=== PATIENT | male | born 1975 | race Caucasian/White ===

== ENCOUNTER 2023-06-28 12:58 | Inpatient (IN) ==
--- NOTE | 2023-06-28 13:05 | DR.N/VMALE ---
HPI Time Seen Time Seen by Provider: 06/28/23 13:13 Complaints Chief Complaint Doctors Comments: 47 y/o male presents with vomiting over the past 2 days. Pt recently moved from [place], 1 1/2 weeks ago. Was d/c'd from his doctors (pain management, PCP) due to the move ). ran out of his meds. Has been on chronic pain management, oxycodone, for awhile. Last pain pill 3 days. Was taken off his DM meds, cause he was doing well (??). Having diffuse abdominal pain. Nothing makes it better, nothing makes it worse. No fever, URI symptoms. Has chronic foot ulceration under left great toe. + diaphoretic. Reviewed Nurses Notes Reviewed: Yes Source History Provided: Patient and Significant Other Mode of Arrival Mode of Arrival: Ambulatory PMH PMH Past Medical History: Coronary Artery Disease, Diabetes, Hypertension and Hyperthyroidism Past Surgical History: Yes Family History Family Medical History: Diabetes Mellitus, Cancer, Heart Failure and Hypertension Social History Alcohol Use: None Do you use any recreational Drugs:: No ROS Review of Systems Constitutional: Weakness Eyes: No Symptoms Reported ENTM: No Symptoms Reported Respiratoy: No Symptoms Reported Cardiovascular: No Symptoms Reported Gastrointestinal/Abdominal: See HPI Genitourinary: No Symptoms Reported Neurological: Weakness Musculoskeletal: No Symptoms Reported Integumentary: No Symptoms Reported All Other Systems: Reviewed and Negative PE Vital Signs Vitals: Vital Signs Temperature 97.8 F Pulse Rate 89 Pulse Rate 92 Pulse Rate 90 Pulse Rate 87 Pulse Rate 87 Pulse Rate 84 Pulse Rate 95 Pulse Rate 94 Pulse Rate 95 Pulse Rate 93 Pulse Rate 96 Pulse Rate 96 Pulse Rate 98 Pulse Rate 93 Pulse Rate 97 Pulse Rate 92 Pulse Rate 93 Pulse Rate 101 Respiratory Rate 20 Respiratory Rate 18 Respiratory Rate 18 Respiratory Rate 29 Respiratory Rate 21 Respiratory Rate 19 Respiratory Rate 16 Respiratory Rate 20 Respiratory Rate 15 Respiratory Rate 13 Respiratory Rate 15 Respiratory Rate 18 Respiratory Rate 19 Respiratory Rate 14 Respiratory Rate 18 Respiratory Rate 17 Respiratory Rate 20 Blood Pressure 186/88 Blood Pressure 173/103 Blood Pressure 173/103 Blood Pressure 173/103 Blood Pressure 201/119 Blood Pressure 191/126 Blood Pressure 191/126 Blood Pressure 202/121 Blood Pressure 202/121 Blood Pressure 202/121 Blood Pressure 204/117 Blood Pressure 204/117 Blood Pressure 181/108 Blood Pressure 207/106 Blood Pressure 207/106 Blood Pressure 201/119 Blood Pressure 201/119 Blood Pressure 201/119 Blood Pressure 201/119 Blood Pressure 201/119 Blood Pressure 201/119 Blood Pressure 201/119 Blood Pressure 201/119 Blood Pressure 201/119 Blood Pressure 201/119 Blood Pressure 208/102 Blood Pressure 229/128 Blood Pressure 229/128 Blood Pressure 238/138 Blood Pressure 238/138 O2 Sat by Pulse Oximetry 90 O2 Sat by Pulse Oximetry 95 O2 Sat by Pulse Oximetry 95 O2 Sat by Pulse Oximetry 97 O2 Sat by Pulse Oximetry 98 O2 Sat by Pulse Oximetry 96 O2 Sat by Pulse Oximetry 98 O2 Sat by Pulse Oximetry 100 O2 Sat by Pulse Oximetry 99 O2 Sat by Pulse Oximetry 98 O2 Sat by Pulse Oximetry 98 General General Appearance: Alert and Other (vomiting) Eyes Eye exam: PERRL and EOMI ENT ENT Exam: Mucous Membranes Moist Neck Neck Exam: Normal Inspection Respiratory Respiratory Exam: Normal Lung Sounds Bilat; negative Accessory Muscle Use or Respiratory Distress Cardiovascular Cardiovascular Exam: Regular Rate, Normal Rhythm and Normal Heart Sounds Abdominal Exam Abdominal Exam: Normal Bowel Sounds, Soft and Tenderness (all quads, no guarding or rebound. ) Extremities Extremities Exam: Normal Inspection; negative Edema Neurologic Neurological Exam: Alert, Oriented X3 and CN II-XII Intact; negative Motor Sensory Deficit Skin Skin Exam: Warm and Dry Other Exam Other Exam: L foot - + chronic ulceration of plantar surface of 1st MTP joint. COURSE Treatment Treatment: 47 y/o male with 2 days of vomiting. W/u initiated. Pt given IV fluids, IV zofran/protonix. Given IV dilaudid for pain, possible narcotic withdrawl. Labs overall acceptable, except for elevated glucose at 282. Pt given SQ reg insulin, 4 U. Was given IV hydralazine intiially. Not much help. Still vomiting. Given IV compazine/benadryl. BP still elevated, given IV metoprolol. CT abd/pelvis -no significant acute abnormalities. 1739 - BP still 200/112, recommend admission for further treatment of his BP, vomting. Dr Mccall accepted the admission. ROR Labs Reviewed Laboratory Results Reviewed?: Yes 06/28/23 13:09 06/28/23 13:57 Laboratory: WBC 11.7 X10^3/uL (3.6-10.0) H 06/28/23 13:09 RBC 5.14 X10^6/uL (4.7-6.0) 06/28/23 13:09 Hgb 14.1 g/dL (13.5-18.0) 06/28/23 13:09 Hct 42.1 % (42.0-54.0) 06/28/23 13:09 MCV 81.8 fL (80.0-100.0) 06/28/23 13:09 MCH 27.5 pg (27.0-34.0) 06/28/23 13:09 MCHC 33.6 g/dL (33.0-35.0) 06/28/23 13:09 RDW 15.6 % (11.6-16.5) 06/28/23 13:09 Plt Count 272 X10^3/uL (150.0-450.0) 06/28/23 13:09 MPV 8.1 fL (7.4-11.0) 06/28/23 13:09 Neut % (Auto) 75.4 % (42.0-75.0) H 06/28/23 13:09 Lymph % (Auto) 17.1 % (21.0-51.0) L 06/28/23 13:09 [place] % (Auto) 6.1 % (0.0-13.0) 06/28/23 13:09 Eos % (Auto) 0.6 % (0.9-2.9) L 06/28/23 13:09 Baso % (Auto) 0.8 % (0.2-1.0) 06/28/23 13:09 Neut # (Auto) 8.8 x10^3/uL (2.2-4.8) H 06/28/23 13:09 Lymph # (Auto) 2.0 X10^3/uL (1.3-2.9) 06/28/23 13:09 [place] # (Auto) 0.7 x10^3/uL (0.3-0.8) 06/28/23 13:09 Eos # (Auto) 0.1 x10^3/uL (0.0-0.2) 06/28/23 13:09 Baso # (Auto) 0.1 X10^3/uL (0.0-0.1) 06/28/23 13:09 Absolute Nucleated RBC 0.1 /100WBC 06/28/23 13:09 Sodium 138 mmol/L (136-145) 06/28/23 13:57 Corrected Sodium 142 mmol/L (136-145) 06/28/23 13:57 Potassium 3.5 mmol/L (3.5-5.1) 06/28/23 13:57 Chloride 101 mmol/L (98-107) 06/28/23 13:57 Carbon Dioxide 26.2 mmol/L (21-32) 06/28/23 13:57 BUN 12 mg/dL (7-18) 06/28/23 13:57 Creatinine 1.16 mg/dL (0.70-1.30) 06/28/23 13:57 Est GFR (MDRD) Af Amer > 60 (>60) 06/28/23 13:57 Est GFR (MDRD) Non-Af > 60 (>60) 06/28/23 13:57 Glucose 282 mg/dL (65-99) H 06/28/23 13:57 Calcium 8.3 mg/dL (8.5-10.1) L 06/28/23 13:57 Corrected Calcium TNP 06/28/23 13:57 Total Bilirubin 0.40 mg/dL (0.2-1.0) 06/28/23 13:57 AST 10 Units/L (15-37) L 06/28/23 13:57 ALT 16 Units/L (12-78) 06/28/23 13:57 Alkaline Phosphatase 72 Units/L (46-116) 06/28/23 13:57 Troponin I High Sens 22.3 ng/L (4.0-60.0) 06/28/23 13:57 Total Protein 7.7 g/dL (6.4-8.2) 06/28/23 13:57 Albumin 3.4 g/dL (3.4-5.0) 06/28/23 13:57 Globulin 4.3 g/dL (2.5-4.5) 06/28/23 13:57 Albumin/Globulin Ratio 0.8 Ratio (1.1-2.1) L 06/28/23 13:57 Lipase 55 Units/L (73-393) L 06/28/23 13:57 Specimen Type Clean catch urine 06/28/23 14:25 Urine Color Yellow (YELLOW) 06/28/23 14:25 Urine Appearance Slightly hazy (CLEAR) 06/28/23 14:25 Urine pH 6.0 (5.0 - 8.0) 06/28/23 14:25 Ur Specific [place] 1.020 (1.000-1.030) 06/28/23 14:25 Urine Protein 2+ (NEGATIVE) 06/28/23 14:25 Urine Glucose (UA) 4+ (NEGATIVE) 06/28/23 14:25 Urine Ketones 1+ (NEGATIVE) 06/28/23 14:25 Urine Blood 1+ (NEGATIVE) 06/28/23 14:25 Urine Nitrite Negative (NEGATIVE) 06/28/23 14:25 Urine Bilirubin Negative (NEGATIVE) 06/28/23 14:25 Urine Urobilinogen Normal (NORMAL) 06/28/23 14:25 Ur Leukocyte Esterase Negative (NEGATIVE) 06/28/23 14:25 Urine RBC 0-2 /HPF (0-3) 06/28/23 14:25 Urine WBC None seen /HPF (0-5) 06/28/23 14:25 Ur Squamous Epith Cells Rare /HPF (NEGATIVE) 06/28/23 14:25 Urine Bacteria Negative /HPF (NEGATIVE) 06/28/23 14:25 Hyaline Casts Rare /LPF (NEGATIVE) 06/28/23 14:25 Urine Mucus Few /HPF (NEGATIVE) 06/28/23 14:25 Ur Culture Indicated? No/not indicated 06/28/23 14:25 Urine Opiates Screen Negative (NEG=<300) 06/28/23 14:25 Urine Methadone Screen Negative (NEG=<300) 06/28/23 14:25 Ur Barbiturates Screen Negative (NEG=<200) 06/28/23 14:25 Ur Phencyclidine Scrn Negative (NEG=<25) 06/28/23 14:25 Ur Amphetamines Screen Negative (NEG=<1000) 06/28/23 14:25 U Benzodiazepines Scrn Negative (NEG=<200) 06/28/23 14:25 Urine Cocaine Screen Negative (NEG=<300) 06/28/23 14:25 U Marijuana (THC) Screen Positive (NEG=<50) A 06/28/23 14:25 Acetone, Semi-Quant Negative (NEGATIVE) 06/28/23 13:57 labs acceptable XRAY XRAY Interpreted by: Radiologist X-ray Results: EXAM: ABDCMEN/PELVIS WITH CON HISTORY: ABD PAIN COMPARISON: None. TECHNIQUE: Multiple axial images of the abdomen and pelvis were obtained from the lung bases to the pubic symphysis after the administration of IV contrast. Dose reduction techniques including Automated Exposure Control (AEC) and adjustment of mA and kV were utilized. FINDINGS: The lung bases are clear. The heart is borderline in size. Suspect hepatic steatosis. The gallbladder, spleen, pancreas, and right adrenal gland have a benign appearance. There is a small fat attenuation left adrenal lesion measuring 4 mm image 24 series 3. There is a small right upper pole renal cyst measuring 1.1 cm image 30 series series 3. No renal calculus or hydronephrosis. Severe bladder The prostate is normal in size. Moderate right and small left fat containing inguinal hernias. Submucosal fat deposition in the colon is nonspecific but often idiopathic. Negative for diverticulitis. The appendix is not visualized, but there is no significant inflammatory change in its expected location. Small bowel feces sign of the terminal ileum. There is a stent in the left external iliac and common femoral vein. Mildly atherosclerotic normal caliber abdominal aorta. Small fat containing umbilical hernia. There is atrophy of the right worse than left rectus abdominis musculature. No pathologic adenopathy. No free air, free fluid, collection. No acute osseous abnormality. Chronic anterior compression deformities at T10 through T12. Moderate lumbar spondylosis and bilateral hip osteoarthrosis. IMPRESSION: Suspect hepatic steatosis. 4 mm left adrenal myelolipoma. Moderate right and small left fat containing inguinal hernias. Small fat containing umbilical hernia. Small bowel feces sign of the terminal ileum is associated with delayed bowel transit. Negative for bowel obstruction. THIS IS AN ELECTRONICALLY VERIFIED FINAL REPORT 06/28/2023 3:35 PM - Electronically signed by Ramon Mendoza MD EKG Rate: 94 [place]: Normal Rhythm: NSR ST: Normal (+ old inferior [place]) Opioid Opioid Risk Tool Age (Madhav box if 16-45): No History of Preadolescent Sexual Abuse: No Total: 0 Total Score Risk Category: Low Risk Copyright: Alan LOREDO predicting aberrant behaviors Discharge Plan Diagnosis Discharge Problem: Hypertensive urgency, Vomiting Discharge Plan Patient Disposition: ADMITTED INPATIENT Condition: Stable
[2023-06-28 13:12] VITALS: BMI 40.1
[2023-06-28] MEDS ORDERED: ZOFRAN INJ 4 MG VIAL IVP ONE (13:13)
[2023-06-28] MEDS ORDERED: PROTONIX INJ 40 MG VIAL IVP ONE (13:13)
[2023-06-28] MEDS ORDERED: NS 1,000 ML IV 1,000 ML IV ONE (13:13)
--- NOTE | 2023-06-28 13:15 | EKG ---
Test Reason : hypertension Blood Pressure : */* mmHG Vent. Rate : 94 BPM Atrial Rate : 94 BPM P-R Int : 186 ms QRS Dur : 94 ms QT Int : 374 ms P-R-T Axes : 51 18 16 degrees QTc Int : 467 ms Normal sinus rhythm Inferior infarct , age undetermined Abnormal ECG No previous ECGs available Confirmed by Justen Dodd ([id number]) on 06/30/2023 9:58:56 AM Referred By: Confirmed By: Justen Dodd
[2023-06-28] MEDS ORDERED: PROTONIX INJ 40 MG VIAL ONE (13:17)
[2023-06-28] MEDS ORDERED: ZOFRAN INJ 4 MG VIAL ONE (13:17)
[2023-06-28] MEDS ORDERED: NS 1,000 ML IV 1,000 ML ONE (13:17)
[2023-06-28 13:24] LABS: BASOPHILS # (AUTO) 0.1 X10^3/uL (0.0-0.1); BASOPHILS % (AUTO) 0.8 % (0.2-1.0); EOSINOPHILS # (AUTO) 0.1 x10^3/uL (0.0-0.2); EOSINOPHILS % (AUTO) 0.6 % (0.9-2.9); HEMATOCRIT 42.1 % (42.0-54.0); HEMOGLOBIN 14.1 g/dL (13.5-18.0); LYMPHOCYTES % (AUTO) 17.1 % (21.0-51.0); MEAN CORPUSCULAR HEMOGLOBIN 27.5 pg (27.0-34.0); MEAN CORPUSCULAR HGB CONC 33.6 g/dL (33.0-35.0); MEAN CORPUSCULAR VOLUME 81.8 fL (80.0-100.0); MEAN PLATELET VOLUME 8.1 fL (7.4-11.0); MONOCYTES # (AUTO) 0.7 x10^3/uL (0.3-0.8); MONOCYTES % (AUTO) 6.1 % (0.0-13.0); NEUTROPHILS # (AUTO) 8.8 x10^3/uL (2.2-4.8); NEUTROPHILS % (AUTO) 75.4 % (42.0-75.0); PLATELET COUNT 272 X10^3/uL (150.0-450.0); RED BLOOD COUNT 5.14 X10^6/uL (4.7-6.0); RED CELL DISTRIBUTION WIDTH 15.6 % (11.6-16.5); WHITE BLOOD COUNT 11.7 X10^3/uL (3.6-10.0)
[2023-06-28] MEDS ORDERED: APRESOLINE INJ 20 MG VIAL IVP ONE (13:27)
[2023-06-28] MEDS ORDERED: DILAUDID INJ IVP ONE ×2 (13:27→18:05)
[2023-06-28] MEDS ORDERED: APRESOLINE INJ 20 MG VIAL ONE (13:31)
[2023-06-28] MEDS ORDERED: DILAUDID INJ ONE ×2 (13:31→18:07)
[2023-06-28 14:22] LABS: ALANINE AMINOTRANSFERASE 16 Units/L (12-78); ALBUMIN 3.4 g/dL (3.4-5.0); ALKALINE PHOSPHATASE 72 Units/L (46-116); ASPARTATE AMINO TRANSFERASE 10 Units/L (15-37); BLOOD UREA NITROGEN 12 mg/dL (7-18); CALCIUM 8.3 mg/dL (8.5-10.1); CARBON DIOXIDE 26.2 mmol/L (21-32); CHLORIDE 101 mmol/L (98-107); COR NA(FOR HYPERGLY) 142 mmol/L (136-145); CREATININE 1.16 mg/dL (0.70-1.30); GLUCOSE 282 mg/dL (65-99); LIPASE 55 Units/L (73-393); POTASSIUM 3.5 mmol/L (3.5-5.1); SODIUM 138 mmol/L (136-145); TOTAL PROTEIN 7.7 g/dL (6.4-8.2); eGFR NON BLACK RACES > 60 (>60)
[2023-06-28 14:35] LABS: BILIRUBIN,URINE NEGATIVE (NEGATIVE); BLOOD/HEMOGLOBIN,URINE 1+ (NEGATIVE); GLUCOSE, URINE 4+ (NEGATIVE); KETONES,URINE 1+ (NEGATIVE); LEUKOCYTE ESTERASE ,URINE NEGATIVE (NEGATIVE); NITRITES,URINE NEGATIVE (NEGATIVE); PROTEIN,URINE 2+ (NEGATIVE); UROBILINOGEN,URINE NORMAL (NORMAL)
[2023-06-28] MEDS ORDERED: BENADRYL INJ 50 MG VIAL IVP ONE (14:41)
[2023-06-28] MEDS ORDERED: COMPAZINE INJ IVP ONE (14:41)
[2023-06-28] MEDS ORDERED: NovoLIN R (or HumuLIN R) SUBCUT STA (14:41)
[2023-06-28] MEDS ORDERED: BENADRYL INJ 50 MG VIAL ONE (14:47)
[2023-06-28] MEDS ORDERED: COMPAZINE INJ ONE (14:47)
[2023-06-28] MEDS ORDERED: NovoLIN R (or HumuLIN R) ONE ×2 (14:48→14:54)
[2023-06-28 14:49] LABS: APPEARANCE,URINE SLIGHTLY HAZY (CLEAR); COLOR,URINE YELLOW (YELLOW)
[2023-06-28 14:50] LABS: BACTERIA,URINE NEGATIVE /HPF (NEGATIVE); HYALINE CASTS, URINE RARE /LPF (NEGATIVE); RBC,URINE 0-2 /HPF (0-3); SQUAMOUS EPITHELIAL CELL,UR RARE /HPF (NEGATIVE)
[2023-06-28] MEDS ORDERED: LOPRESSOR INJ 5 MG AMP IVP ONE (15:02)
[2023-06-28] MEDS ORDERED: LOPRESSOR INJ 5 MG AMP ONE (15:04)
[2023-06-28] MEDS ORDERED: OMNIPAQUE 350 mg/mL 100 mL BTL 100 ML ONE (15:09)
--- NOTE | 2023-06-28 15:39 | CT ---
EXAM:ABDCMEN/PELVIS WITH CONHISTORY:ABD PAINCOMPARISON:None.TECHNIQUE:Multiple axial images of the abdomen and pelvis were obtained from the lung bases to the pubic symphysis after the administration of IV contrast. Dose reduction techniques including Automated Exposure Control (AEC) and adjustment of mA and kV were utilized.FINDINGS:The lung bases are clear. The heart is borderline in size. Suspect hepatic steatosis. The gallbladder, spleen, pancreas, and right adrenal gland have a benign appearance. There is a small fat attenuation left adrenal lesion measuring 4 mm image 24 series 3. There is a small right upper pole renal cyst measuring 1.1 cm image 30 series series 3. No renal calculus or hydronephrosis. Severe bladder The prostate is normal in size. Moderate right and small left fat containing inguinal hernias. Submucosal fat deposition in the colon is nonspecific but often idiopathic. Negative for diverticulitis. The appendix is not visualized, but there is no significant inflammatory change in its expected location. Small bowel feces sign of the terminal ileum. There is a stent in the left external iliac and common femoral vein. Mildly atherosclerotic normal caliber abdominal aorta. Small fat containing umbilical hernia. There is atrophy of the right worse than left rectus abdominis musculature. No pathologic adenopathy. No free air, free fluid, collection. No acute osseous abnormality. Chronic anterior compression deformities at T10 through T12. Moderate lumbar spondylosis and bilateral hip osteoarthrosis.IMPRESSION:Suspect hepatic steatosis.4 mm left adrenal myelolipoma.Moderate right and small left fat containing inguinal hernias. Small fat containing umbilical hernia.Small bowel feces sign of the terminal ileum is associated with delayed bowel transit. Negative for bowel obstruction.THIS IS AN ELECTRONICALLY VERIFIED FINAL REPORT06/28/2023 3:35 PM - Electronically signed by Ramon Mendoza MD
[2023-06-28] MEDS ORDERED: CONSULT PHARMACY - POTASSIUM & MAGNESIUM XX SCH (19:01)
[2023-06-28] MEDS ORDERED: LOPRESSOR INJ 5 MG AMP IVP PRN (19:01)
[2023-06-28] MEDS: APRESOLINE INJ 20 MG VIAL IVP SCH (19:33)
[2023-06-28] MEDS: DILAUDID INJ IVP PRN (19:37)
[2023-06-28] MEDS: SNACK - Diabetic Appropriate PO SCH ×2 (20:11)
[2023-06-28] MEDS: NovoLIN R (or HumuLIN R) SUBCUT PRN (20:49)
[2023-06-29] MEDS: APRESOLINE INJ 20 MG VIAL IVP SCH ×2 (00:44→06:06)
[2023-06-29] MEDS: DILAUDID INJ IVP PRN ×2 (00:49→04:24)
[2023-06-29] MEDS: ZOFRAN INJ 4 MG VIAL IVP PRN ×3 (04:28→20:38)
[2023-06-29 05:13] LABS: BASOPHILS # (AUTO) 0.1 X10^3/uL (0.0-0.1); BASOPHILS % (AUTO) 0.9 % (0.2-1.0); EOSINOPHILS # (AUTO) 0.1 x10^3/uL (0.0-0.2); EOSINOPHILS % (AUTO) 0.6 % (0.9-2.9); HEMATOCRIT 39.5 % (42.0-54.0); HEMOGLOBIN 13.5 g/dL (13.5-18.0); LYMPHOCYTES # (AUTO) 2.3 X10^3/uL (1.3-2.9); LYMPHOCYTES % (AUTO) 20.1 % (21.0-51.0); MEAN CORPUSCULAR HEMOGLOBIN 27.8 pg (27.0-34.0); MEAN CORPUSCULAR HGB CONC 34.2 g/dL (33.0-35.0); MEAN CORPUSCULAR VOLUME 81.2 fL (80.0-100.0); MEAN PLATELET VOLUME 7.9 fL (7.4-11.0); MONOCYTES # (AUTO) 0.9 x10^3/uL (0.3-0.8); MONOCYTES % (AUTO) 7.7 % (0.0-13.0); NEUTROPHILS # (AUTO) 7.9 x10^3/uL (2.2-4.8); NEUTROPHILS % (AUTO) 70.7 % (42.0-75.0); PLATELET COUNT 259 X10^3/uL (150.0-450.0); RED BLOOD COUNT 4.86 X10^6/uL (4.7-6.0); RED CELL DISTRIBUTION WIDTH 15.9 % (11.6-16.5); WHITE BLOOD COUNT 11.2 X10^3/uL (3.6-10.0)
[2023-06-29 05:26] LABS: ALANINE AMINOTRANSFERASE 12 Units/L (12-78); ALKALINE PHOSPHATASE 63 Units/L (46-116); ASPARTATE AMINO TRANSFERASE 11 Units/L (15-37); BLOOD UREA NITROGEN 10 mg/dL (7-18); CALCIUM 8.1 mg/dL (8.5-10.1); CARBON DIOXIDE 24.6 mmol/L (21-32); CHLORIDE 101 mmol/L (98-107); COR CA(FOR HYPOALB) 8.9 mg/dL (8.5-10.1); COR NA(FOR HYPERGLY) 140 mmol/L (136-145); CREATININE 0.97 mg/dL (0.70-1.30); GLUCOSE 181 mg/dL (65-99); POTASSIUM 3.1 mmol/L (3.5-5.1); SODIUM 138 mmol/L (136-145); TOTAL PROTEIN 7.1 g/dL (6.4-8.2); eGFR NON BLACK RACES > 60 (>60)
[2023-06-29] MEDS ORDERED: CONSULT PHARMACY - POTASSIUM & MAGNESIUM XX SCH (06:00)
[2023-06-29] MEDS ORDERED: APRESOLINE INJ 20 MG VIAL IVP PRN (08:34)
[2023-06-29] MEDS ORDERED: MAG-OX TAB PO SCH (09:00)
[2023-06-29] MEDS ORDERED: ELIMITE TOPICAL CREAM TOP NR (09:00)
[2023-06-29] MEDS ORDERED: ZESTRIL TAB 20 MG ONE (10:36)
[2023-06-29] MEDS ORDERED: NS 100 ML IV 0 ML ONE (10:41)
[2023-06-29] MEDS: ZESTRIL TAB 20 MG PO SCH (10:44)
[2023-06-29] MEDS: NEURONTIN CAP 300 MG PO SCH ×3 (10:44→21:22)
[2023-06-29] MEDS: K-DUR TAB 20 MEQ PO SCH ×5 (10:44→21:22)
[2023-06-29] MEDS: FLEXERIL TAB 10 MG PO SCH ×3 (10:45→21:21)
[2023-06-29] MEDS: ASPIRIN 81 MG CHEWTAB PO SCH (10:45)
[2023-06-29] MEDS: NORVASC TAB 10 MG PO SCH (10:45)
[2023-06-29] MEDS ORDERED: NS 1,000 ML IV 1,000 ML ONE (11:39)
[2023-06-29] MEDS: ROXICODONE TAB 5 MG PO PRN ×2 (12:00→20:38)
[2023-06-29] MEDS ORDERED: MAG-OX TAB PO NR (12:00)
[2023-06-29] MEDS: LEVAQUIN PREMIX IV 750 MG 750 MG/150 ML BAG IV SCH (12:02)
[2023-06-29] MEDS ORDERED: NS 1,000 ML IV 1,000 ML IV SCH (12:09)
[2023-06-29] MEDS: LEVEMIR SC SCH (12:40)
[2023-06-29] MEDS: NovoLIN R (or HumuLIN R) SUBCUT PRN ×2 (12:44→21:27)
[2023-06-29] MEDS: NS + KCL 20 MEQ/L 1,000 ML IV SCH (13:56)
[2023-06-29] MEDS: SNACK - Diabetic Appropriate PO SCH ×3 (19:11)
[2023-06-29] MEDS: MAG-OX TAB PO SCH (21:21)
[2023-06-29] MEDS: RESTORIL CAP 15 MG PO PRN (23:46)
[2023-06-30] MEDS: ZOFRAN INJ 4 MG VIAL IVP PRN (04:35)
[2023-06-30] MEDS: ROXICODONE TAB 5 MG PO PRN ×3 (04:35→21:24)
[2023-06-30] MEDS: NEURONTIN CAP 300 MG PO SCH ×3 (05:29→21:22)
[2023-06-30] MEDS: FLEXERIL TAB 10 MG PO SCH ×3 (05:29→21:22)
[2023-06-30 05:41] LABS: BASOPHILS # (AUTO) 0.1 X10^3/uL (0.0-0.1); BASOPHILS % (AUTO) 0.8 % (0.2-1.0); EOSINOPHILS % (AUTO) 0.3 % (0.9-2.9); HEMATOCRIT 46.3 % (42.0-54.0); LYMPHOCYTES # (AUTO) 2.8 X10^3/uL (1.3-2.9); LYMPHOCYTES % (AUTO) 24.2 % (21.0-51.0); MEAN CORPUSCULAR HEMOGLOBIN 28.2 pg (27.0-34.0); MEAN CORPUSCULAR HGB CONC 34.3 g/dL (33.0-35.0); MEAN CORPUSCULAR VOLUME 82.1 fL (80.0-100.0); MEAN PLATELET VOLUME 7.8 fL (7.4-11.0); MONOCYTES # (AUTO) 1.1 x10^3/uL (0.3-0.8); MONOCYTES % (AUTO) 9.5 % (0.0-13.0); NEUTROPHILS # (AUTO) 7.5 x10^3/uL (2.2-4.8); NEUTROPHILS % (AUTO) 65.2 % (42.0-75.0); PLATELET COUNT 294 X10^3/uL (150.0-450.0); RED BLOOD COUNT 5.64 X10^6/uL (4.7-6.0); RED CELL DISTRIBUTION WIDTH 16.1 % (11.6-16.5); WHITE BLOOD COUNT 11.4 X10^3/uL (3.6-10.0)
[2023-06-30 05:44] LABS: HEMOGLOBIN 15.9 g/dL (13.5-18.0)
[2023-06-30] MEDS: NovoLIN R (or HumuLIN R) SUBCUT PRN ×3 (05:49→21:25)
[2023-06-30 05:55] LABS: ALANINE AMINOTRANSFERASE 16 Units/L (12-78); ALBUMIN 3.7 g/dL (3.4-5.0); ALKALINE PHOSPHATASE 76 Units/L (46-116); ASPARTATE AMINO TRANSFERASE 12 Units/L (15-37); BLOOD UREA NITROGEN 12 mg/dL (7-18); CALCIUM 8.9 mg/dL (8.5-10.1); CARBON DIOXIDE 24.6 mmol/L (21-32); CHLORIDE 98 mmol/L (98-107); COR NA(FOR HYPERGLY) 139 mmol/L (136-145); CREATININE 1.32 mg/dL (0.70-1.30); GLUCOSE 182 mg/dL (65-99); MAGNESIUM 2.1 mg/dL (2.0-2.9); POTASSIUM 3.9 mmol/L (3.5-5.1); SODIUM 137 mmol/L (136-145); TOTAL PROTEIN 8.7 g/dL (6.4-8.2); eGFR NON BLACK RACES > 60 (>60)
[2023-06-30] MEDS ORDERED: ZESTRIL TAB 20 MG ONE (08:14)
[2023-06-30] MEDS: MAG-OX TAB PO SCH ×2 (08:39→21:22)
[2023-06-30] MEDS: ZESTRIL TAB 20 MG PO SCH (08:39)
[2023-06-30] MEDS: NORVASC TAB 10 MG PO SCH (08:39)
[2023-06-30] MEDS: ASPIRIN 81 MG CHEWTAB PO SCH (08:39)
[2023-06-30] MEDS: LEVAQUIN PREMIX IV 750 MG 750 MG/150 ML BAG IV SCH (08:40)
[2023-06-30] MEDS: LEVEMIR SC SCH (08:57)
[2023-06-30] MEDS ORDERED: ZOFRAN TAB 4 MG PO PRN (09:03)
[2023-06-30] MEDS: NS + KCL 20 MEQ/L 1,000 ML IV SCH (09:52)
--- NOTE | 2023-06-30 14:55 | PCM.PROG ---
Progress Note - Progress Note for Day of Date of Exam: 06/30/23 - Subjective Subjective: IS A 47 YEAR OLD PATIENT OF . HE HAS A PMH OF DM II, HTN, CAD, DC, DIABETIC NEUROPATHY, AND CHRONIC ULCER OF THE GREAT LEFT TOE. HE IS CURRENTLY INPATIENT STATUS FOR TREATMENT OF HYPERTENSIVE URGENCY, ABDOMINAL PAIN, NAUSEA AND VOMITING. TODAY, HE IS ALERT AND ORIENTED, LYING IN BED ON MORNING ROUNDS. HE CONTINUES TO COMPLAIN OF DIFFUSE ABDOMINAL PAIN. HE DOES ADMIT TO SLIGHT IMPROVEMENT IN SYMPTOMS SINCE ADMISSION. HE COMPLAINS OF ITCHING TO HIS BACK AND STOMACH. HIS BLOOD PRESSURE SEEMS TO HAVE BEEN STABLE AND CONTROLLED THROUGHOUT THE NIGHT. ON EXAMINATION, HEART IS REGULAR IN RATE AND RHYTHM. BILATERAL LUNGS ARE CLEAR TO AUSCULTATION. ABDOMEN IS ROUND, SOFT, A ND NOTED WITH DIFFUSE TENDERNESS. GOOD RANGE OF MOTION NOTED TO UPPER AND LOWER EXTREMITIES. NON-HEALING WOUND COVERED WITH KERATOSIS IS NOTED TO THE LEFT GREAT TOE. HIS VITALS THIS MORNING ARE: 97.8-85-20-96%-119/73. LABS WERE OBTAINED. WBC 11.4, RBC 5.64, HGB 15.9, HCT 46.3, PLT COUNT 294, SODIUM 137, POTASSIUM 3.9, CHLORIDE 98, CARBON DIOXIDE 24.6, BUN 12, CREATININE 1.32, GLUCOSE 182, CALCIUM 8.9, MAGNESIUM 2.1, AST 12, ALT 16, ALK PHOS 76, TOTAL PROTEIN 8.7, ALBUMIN 3.7. AN ABDOMEN/PELVIS CT WITH CONTRAST WAS OBTAINED AND REVEALED: Suspect hepatic steatosis. 4 mm left adrenal myelolipoma. Moderate right and small left fat containing inguinal hernias. Small fat containing umbilical hernia. Small bowel feces sign of the terminal ileum is associated with delayed bowel transit. Negative for bowel obstruction. HAS CONSULTED WITH PATIENT REGARDING WOUND TO GREAT TOE. HE PLANS FOR DEBRIDEMENT NEXT WEEK. WE WILL CONTINUE PATIENTS IV FLUIDS AND CURRENT PLAN OF CARE TODAY. OTHERWISE, WE WILL FOLLOW UP WITH AM LABS AND CONTINUE TO MONITOR. TIME SPENT ON CLINICAL ASSESSMENT, R EVIEWING LABS AND IMAGING, DECISION MAKING, AND DOCUMENTATION GREATER THAN 45 MINUTES. - Past Medical Family Social History Past Med/Fam/Surg Hx: No changes since H&P Allergies: Allergies dicyclomine Allergy (Verified 06/28/23 13:12) RASH doxycycline Allergy (Verified 06/28/23 13:12) metformin Allergy (Verified 06/28/23 13:12) Penicillins Allergy (Verified 06/28/23 13:12) Latex, Natural Rubber Adverse Reaction (Verified 06/29/23 00:30) - Review of Systems ROS: No change since H&P - Vital Signs and I&O's Vital Signs: Vital Signs Temperature 97.6 F Temperature 97.8 F Pulse Rate [Left Radial] 74 Pulse Rate [Left Radial] 85 Respiratory Rate 20 Respiratory Rate 18 Respiratory Rate 18 Respiratory Rate 20 Blood Pressure [Left Arm] 91/50 Blood Pressure [Left Arm] 119/73 O2 Sat by Pulse Oximetry 91 O2 Sat by Pulse Oximetry 96 Intake and Output: Intake & Output 06/28/23 06/29/23 06/30/23 07/01/23 11:59 11:59 11:59 11:59 Intake Total 1186 / 1186 2741 / 2741 Output Total 220 / 220 1100 / 1100 Balance 966 / 966 1641 / 1641 - Physical Exam Oriented: Normal Eyes: Normal Ear: Normal Nose: Normal Throat: Normal Respiratory: Normal, Diminished Cardiovascular: Normal : Normal Auscultation: Bowel Sounds: Normal Palpation: Normal Tenderness: Normal Skin: Wound (LEFT GREAT TOE WOUND ) Musculoskeletal: Normal Psychiatric: Normal Mood Description: Calm Affect: Normal Speech Pattern: Clear, Appropriate - Laboratory and Diagnostics Result Diagrams: 06/30/23 04:36 06/30/23 04:36 Labs: Laboratory WBC 11.4 X10^3/uL (3.6-10.0) H 06/30/23 04:36 RBC 5.64 X10^6/uL (4.7-6.0) 06/30/23 04:36 Hgb 15.9 g/dL (13.5-18.0) D 06/30/23 04:36 Hct 46.3 % (42.0-54.0) 06/30/23 04:36 MCV 82.1 fL (80.0-100.0) 06/30/23 04:36 MCH 28.2 pg (27.0-34.0) 06/30/23 04:36 MCHC 34.3 g/dL (33.0-35.0) 06/30/23 04:36 RDW 16.1 % (11.6-16.5) 06/30/23 04:36 Plt Count 294 X10^3/uL (150.0-450.0) 06/30/23 04:36 MPV 7.8 fL (7.4-11.0) 06/30/23 04:36 Neut % (Auto) 65.2 % (42.0-75.0) 06/30/23 04:36 Lymph % (Auto) 24.2 % (21.0-51.0) 06/30/23 04:36 [place] % (Auto) 9.5 % (0.0-13.0) 06/30/23 04:36 Eos % (Auto) 0.3 % (0.9-2.9) L 06/30/23 04:36 Baso % (Auto) 0.8 % (0.2-1.0) 06/30/23 04:36 Neut # (Auto) 7.5 x10^3/uL (2.2-4.8) H 06/30/23 04:36 Lymph # (Auto) 2.8 X10^3/uL (1.3-2.9) 06/30/23 04:36 [place] # (Auto) 1.1 x10^3/uL (0.3-0.8) H 06/30/23 04:36 Eos # (Auto) 0.0 x10^3/uL (0.0-0.2) 06/30/23 04:36 Baso # (Auto) 0.1 X10^3/uL (0.0-0.1) 06/30/23 04:36 Absolute Nucleated RBC 0.1 /100WBC 06/30/23 04:36 Sodium 137 mmol/L (136-145) 06/30/23 04:36 Corrected Sodium 139 mmol/L (136-145) 06/30/23 04:36 Potassium 3.9 mmol/L (3.5-5.1) 06/30/23 04:36 Chloride 98 mmol/L (98-107) 06/30/23 04:36 Carbon Dioxide 24.6 mmol/L (21-32) 06/30/23 04:36 BUN 12 mg/dL (7-18) 06/30/23 04:36 Creatinine 1.32 mg/dL (0.70-1.30) H 06/30/23 04:36 Est GFR (MDRD) Af Amer > 60 (>60) 06/30/23 04:36 Est GFR (MDRD) Non-Af > 60 (>60) 06/30/23 04:36 Glucose 182 mg/dL (65-99) H 06/30/23 04:36 POC Glucose (mg/dL) 181 mg/dL (65-99) H 06/30/23 11:14 Calcium 8.9 mg/dL (8.5-10.1) 06/30/23 04:36 Corrected Calcium TNP 06/30/23 04:36 Magnesium 2.1 mg/dL (2.0-2.9) 06/30/23 04:36 Total Bilirubin 0.80 mg/dL (0.2-1.0) 06/30/23 04:36 AST 12 Units/L (15-37) L 06/30/23 04:36 ALT 16 Units/L (12-78) 06/30/23 04:36 Alkaline Phosphatase 76 Units/L (46-116) 06/30/23 04:36 Troponin I High Sens 22.3 ng/L (4.0-60.0) 06/28/23 13:57 Total Protein 8.7 g/dL (6.4-8.2) H 06/30/23 04:36 Albumin 3.7 g/dL (3.4-5.0) 06/30/23 04:36 Globulin 5.0 g/dL (2.5-4.5) H 06/30/23 04:36 Albumin/Globulin Ratio 0.7 Ratio (1.1-2.1) L 06/30/23 04:36 Lipase 55 Units/L (73-393) L 06/28/23 13:57 Specimen Type Clean catch urine 06/28/23 14:25 Urine Color Yellow (YELLOW) 06/28/23 14:25 Urine Appearance Slightly hazy (CLEAR) 06/28/23 14:25 Urine pH 6.0 (5.0 - 8.0) 06/28/23 14:25 Ur Specific [place] 1.020 (1.000-1.030) 06/28/23 14:25 Urine Protein 2+ (NEGATIVE) 06/28/23 14:25 Urine Glucose (UA) 4+ (NEGATIVE) 06/28/23 14:25 Urine Ketones 1+ (NEGATIVE) 06/28/23 14:25 Urine Blood 1+ (NEGATIVE) 06/28/23 14:25 Urine Nitrite Negative (NEGATIVE) 06/28/23 14:25 Urine Bilirubin Negative (NEGATIVE) 06/28/23 14:25 Urine Urobilinogen Normal (NORMAL) 06/28/23 14:25 Ur Leukocyte Esterase Negative (NEGATIVE) 06/28/23 14:25 Urine RBC 0-2 /HPF (0-3) 06/28/23 14:25 Urine WBC None seen /HPF (0-5) 06/28/23 14:25 Ur Squamous Epith Cells Rare /HPF (NEGATIVE) 06/28/23 14:25 Urine Bacteria Negative /HPF (NEGATIVE) 06/28/23 14:25 Hyaline Casts Rare /LPF (NEGATIVE) 06/28/23 14:25 Urine Mucus Few /HPF (NEGATIVE) 06/28/23 14:25 Ur Culture Indicated? No/not indicated 06/28/23 14:25 Urine Opiates Screen Negative (NEG=<300) 06/28/23 14:25 Urine Methadone Screen Negative (NEG=<300) 06/28/23 14:25 Ur Barbiturates Screen Negative (NEG=<200) 06/28/23 14:25 Ur Phencyclidine Scrn Negative (NEG=<25) 06/28/23 14:25 Ur Amphetamines Screen Negative (NEG=<1000) 06/28/23 14:25 U Benzodiazepines Scrn Negative (NEG=<200) 06/28/23 14:25 Urine Cocaine Screen Negative (NEG=<300) 06/28/23 14:25 U Marijuana (THC) Screen Positive (NEG=<50) A 06/28/23 14:25 Acetone, Semi-Quant Negative (NEGATIVE) 06/28/23 13:57 - Plan (1) Abdominal pain Status: Acute (2) Nausea and vomiting Status: Acute (3) Wound of left lower extremity Status: Acute (4) Hypertensive urgency Status: Acute (5) HTN (hypertension) Status: Chronic Qualifiers: Hypertension type: primary hypertension Qualified Code(s): I10 - Essential (primary) hypertension (6) DM (diabetes mellitus) Status: Chronic Qualifiers: Diabetes mellitus type: type 2 Diabetes mellitus long lines operator insulin use: with long lines operator use Diabetes mellitus complication status: with hyperglycemia Qualified Code(s): E11.65 - Type 2 diabetes mellitus with hyperglycemia; Z79.4 - senior living (current) use of insulin (7) CAD (coronary artery disease) Status: Chronic Qualifiers: Coronary Disease-Associated Artery/Lesion type: [place] artery [place] vs. transplanted heart: [place] heart Associated angina: unspecified whether angina present Qualified Code(s): I25.10 - Atherosclerotic heart disease of [place] c oronary artery without angina pectoris
[2023-06-30] MEDS: SNACK - Diabetic Appropriate PO SCH ×3 (20:00)
[2023-06-30] MEDS: K-DUR TAB 20 MEQ PO SCH (21:21)
[2023-06-30] MEDS: RESTORIL CAP 15 MG PO PRN (21:23)
[2023-07-01] MEDS: FLEXERIL TAB 10 MG PO SCH ×3 (05:17→21:06)
[2023-07-01] MEDS: NEURONTIN CAP 300 MG PO SCH ×3 (05:18→21:06)
[2023-07-01] MEDS: ROXICODONE TAB 5 MG PO PRN ×3 (05:27→23:43)
[2023-07-01 05:43] LABS: BASOPHILS # (AUTO) 0.1 X10^3/uL (0.0-0.1); BASOPHILS % (AUTO) 1.3 % (0.2-1.0); EOSINOPHILS # (AUTO) 0.1 x10^3/uL (0.0-0.2); EOSINOPHILS % (AUTO) 0.8 % (0.9-2.9); HEMATOCRIT 42.8 % (42.0-54.0); HEMOGLOBIN 14.4 g/dL (13.5-18.0); LYMPHOCYTES # (AUTO) 2.5 X10^3/uL (1.3-2.9); LYMPHOCYTES % (AUTO) 26.8 % (21.0-51.0); MEAN CORPUSCULAR HGB CONC 33.8 g/dL (33.0-35.0); MEAN CORPUSCULAR VOLUME 82.9 fL (80.0-100.0); MEAN PLATELET VOLUME 7.5 fL (7.4-11.0); MONOCYTES # (AUTO) 0.8 x10^3/uL (0.3-0.8); MONOCYTES % (AUTO) 8.5 % (0.0-13.0); NEUTROPHILS # (AUTO) 5.8 x10^3/uL (2.2-4.8); NEUTROPHILS % (AUTO) 62.6 % (42.0-75.0); PLATELET COUNT 242 X10^3/uL (150.0-450.0); RED BLOOD COUNT 5.16 X10^6/uL (4.7-6.0); WHITE BLOOD COUNT 9.2 X10^3/uL (3.6-10.0)
[2023-07-01 05:53] LABS: ALANINE AMINOTRANSFERASE 14 Units/L (12-78); ALKALINE PHOSPHATASE 61 Units/L (46-116); ASPARTATE AMINO TRANSFERASE 10 Units/L (15-37); BLOOD UREA NITROGEN 15 mg/dL (7-18); CALCIUM 8.2 mg/dL (8.5-10.1); CARBON DIOXIDE 27.7 mmol/L (21-32); CHLORIDE 102 mmol/L (98-107); COR NA(FOR HYPERGLY) 140 mmol/L (136-145); CREATININE 1.17 mg/dL (0.70-1.30); GLUCOSE 150 mg/dL (65-99); MAGNESIUM 2.1 mg/dL (2.0-2.9); SODIUM 139 mmol/L (136-145); TOTAL PROTEIN 7.2 g/dL (6.4-8.2); eGFR NON BLACK RACES > 60 (>60)
[2023-07-01] MEDS ORDERED: ZESTRIL TAB 20 MG ONE (08:26)
--- NOTE | 2023-07-01 08:59 | PCM.PROG ---
Progress Note - Progress Note for Day of Date of Exam: 07/01/23 - Subjective Subjective: IS A 47 YEAR OLD PATIENT OF . HE HAS A PMH OF DM II, HTN, CAD, MS, DIABETIC NEUROPATHY, AND CHRONIC ULCER OF THE GREAT LEFT TOE. HE IS CURRENTLY INPATIENT STATUS FOR TREATMENT OF HYPERTENSIVE URGENCY, ABDOMINAL PAIN, NAUSEA AND VOMITING. TODAY, HE IS ALERT AND ORIENTED, LYING IN BED ON MORNING ROUNDS. HE CONTINUES TO COMPLAIN OF DIFFUSE ABDOMINAL PAIN. HE DOES ADMIT TO SLIGHT IMPROVEMENT IN SYMPTOMS SINCE ADMISSION. HE COMPLAINS OF ITCHING TO HIS BACK AND STOMACH. HIS BLOOD PRESSURE SEEMS TO HAVE BEEN STABLE AND CONTROLLED THROUGHOUT THE NIGHT. ON EXAMINATION, HEART IS REGULAR IN RATE AND RHYTHM. BILATERAL LUNGS ARE CLEAR TO AUSCULTATION. ABDOMEN IS ROUND, SOFT, A ND NOTED WITH DIFFUSE TENDERNESS. GOOD RANGE OF MOTION NOTED TO UPPER AND LOWER EXTREMITIES. NON-HEALING WOUND COVERED WITH KERATOSIS IS NOTED TO THE LEFT GREAT TOE. HIS VITALS THIS MORNING ARE: 98.5-85-18-112/70. LABS WERE OBTAINED. 9.2, RBC 5.16, HGB 14.4, HCT 42.8, PLT COUNT 242, SODIUM 139, POTASSIUM 4.0, CHLORIDE 102, BUN 15, CREATININE 1.17, GLUCOSE 150, CALCIUM 8.2, AST 10, ALT 14, ALK PHOS 61, TOTAL PROTEIN 7.2. AN ABDOMEN/PELVIS CT WITH CONTRAST WAS OBTAINED AND REVEALED: Suspect hepatic steatosis. 4 mm left adrenal myelolipoma. Moderate right and small left fat containing inguinal hernias. Small fat containing umbilical hernia. Small bowel feces sign of the terminal ileum is associated with delayed bowel transit. Negative for bowel obstruction. HAS CONSULTED WITH PATIENT REGARDING WOUND TO GREAT TOE. HE PLANS FOR DEBRIDEMENT NEXT WEEK. WE WILL CONTINUE PATIENTS IV FLUIDS AND CURRENT PLAN OF CARE TODAY. OTHERWISE, WE WILL FOLLOW UP WITH AM LABS AND CONTINUE TO MONITOR. TIME SPENT ON CLINICAL ASSESSMENT, REVIEWING LABS AND IMAGING, DECISION MAKING, AND DOCUMENTA TION GREATER THAN 45 MINUTES. - Past Medical Family Social History Past Med/Fam/Surg Hx: No changes since H&P Allergies: Allergies dicyclomine Allergy (Verified 06/28/23 13:12) RASH doxycycline Allergy (Verified 06/28/23 13:12) metformin Allergy (Verified 06/28/23 13:12) Penicillins Allergy (Verified 06/28/23 13:12) Latex, Natural Rubber Adverse Reaction (Verified 06/29/23 00:30) - Review of Systems ROS: No change since H&P - Vital Signs and I&O's Vital Signs: Vital Signs Temperature 98.5 F Pulse Rate [Left Radial] 85 Respiratory Rate 18 Respiratory Rate 18 Blood Pressure [Left Arm] 112/70 Intake and Output: Intake & Output 06/28/23 06/29/23 06/30/23 07/01/23 11:59 11:59 11:59 11:59 Intake Total 1186 / 1186 2741 / 2741 2979 / 2979 Output Total 220 / 220 1100 / 1100 Balance 966 / 966 1641 / 1641 2979 / 2979 - Physical Exam Oriented: Normal Eyes: Normal Ear: Normal Nose: Normal Throat: Normal Respiratory: Normal, Diminished Cardiovascular: Normal : Normal Auscultation: Bowel Sounds: Normal Palpation: Normal Tenderness: Normal Skin: Wound (LEFT GREAT TOE WOUND ) Musculoskeletal: Normal Psychiatric: Normal Mood Description: Calm Affect: Normal Speech Pattern: Clear, Appropriate - Laboratory and Diagnostics Result Diagrams: 07/01/23 05:24 07/01/23 05:24 Labs: Laboratory WBC 9.2 X10^3/uL (3.6-10.0) 07/01/23 05:24 RBC 5.16 X10^6/uL (4.7-6.0) 07/01/23 05:24 Hgb 14.4 g/dL (13.5-18.0) 07/01/23 05:24 Hct 42.8 % (42.0-54.0) 07/01/23 05:24 MCV 82.9 fL (80.0-100.0) 07/01/23 05:24 MCH 28.0 pg (27.0-34.0) 07/01/23 05:24 MCHC 33.8 g/dL (33.0-35.0) 07/01/23 05:24 RDW 16.0 % (11.6-16.5) 07/01/23 05:24 Plt Count 242 X10^3/uL (150.0-450.0) 07/01/23 05:24 MPV 7.5 fL (7.4-11.0) 07/01/23 05:24 Neut % (Auto) 62.6 % (42.0-75.0) 07/01/23 05:24 Lymph % (Auto) 26.8 % (21.0-51.0) 07/01/23 05:24 [place] % (Auto) 8.5 % (0.0-13.0) 07/01/23 05:24 Eos % (Auto) 0.8 % (0.9-2.9) L 07/01/23 05:24 Baso % (Auto) 1.3 % (0.2-1.0) H 07/01/23 05:24 Neut # (Auto) 5.8 x10^3/uL (2.2-4.8) H 07/01/23 05:24 Lymph # (Auto) 2.5 X10^3/uL (1.3-2.9) 07/01/23 05:24 [place] # (Auto) 0.8 x10^3/uL (0.3-0.8) 07/01/23 05:24 Eos # (Auto) 0.1 x10^3/uL (0.0-0.2) 07/01/23 05:24 Baso # (Auto) 0.1 X10^3/uL (0.0-0.1) 07/01/23 05:24 Absolute Nucleated RBC 0.1 /100WBC 07/01/23 05:24 Sodium 139 mmol/L (136-145) 07/01/23 05:24 Corrected Sodium 140 mmol/L (136-145) 07/01/23 05:24 Potassium 4.0 mmol/L (3.5-5.1) 07/01/23 05:24 Chloride 102 mmol/L (98-107) 07/01/23 05:24 Carbon Dioxide 27.7 mmol/L (21-32) 07/01/23 05:24 BUN 15 mg/dL (7-18) 07/01/23 05:24 Creatinine 1.17 mg/dL (0.70-1.30) 07/01/23 05:24 Est GFR (MDRD) Af Amer > 60 (>60) 07/01/23 05:24 Est GFR (MDRD) Non-Af > 60 (>60) 07/01/23 05:24 Glucose 150 mg/dL (65-99) H 07/01/23 05:24 POC Glucose (mg/dL) 166 mg/dL (65-99) H 07/01/23 05:11 Calcium 8.2 mg/dL (8.5-10.1) L 07/01/23 05:24 Corrected Calcium 9.0 mg/dL (8.5-10.1) 07/01/23 05:24 Magnesium 2.1 mg/dL (2.0-2.9) 07/01/23 05:24 Total Bilirubin 0.50 mg/dL (0.2-1.0) 07/01/23 05:24 AST 10 Units/L (15-37) L 07/01/23 05:24 ALT 14 Units/L (12-78) 07/01/23 05:24 Alkaline Phosphatase 61 Units/L (46-116) 07/01/23 05:24 Troponin I High Sens 22.3 ng/L (4.0-60.0) 06/28/23 13:57 Total Protein 7.2 g/dL (6.4-8.2) 07/01/23 05:24 Albumin 3.0 g/dL (3.4-5.0) L 07/01/23 05:24 Globulin 4.2 g/dL (2.5-4.5) 07/01/23 05:24 Albumin/Globulin Ratio 0.7 Ratio (1.1-2.1) L 07/01/23 05:24 Lipase 55 Units/L (73-393) L 06/28/23 13:57 Specimen Type Clean catch urine 06/28/23 14:25 Urine Color Yellow (YELLOW) 06/28/23 14:25 Urine Appearance Slightly hazy (CLEAR) 06/28/23 14:25 Urine pH 6.0 (5.0 - 8.0) 06/28/23 14:25 Ur Specific [place] 1.020 (1.000-1.030) 06/28/23 14:25 Urine Protein 2+ (NEGATIVE) 06/28/23 14:25 Urine Glucose (UA) 4+ (NEGATIVE) 06/28/23 14:25 Urine Ketones 1+ (NEGATIVE) 06/28/23 14:25 Urine Blood 1+ (NEGATIVE) 06/28/23 14:25 Urine Nitrite Negative (NEGATIVE) 06/28/23 14:25 Urine Bilirubin Negative (NEGATIVE) 06/28/23 14:25 Urine Urobilinogen Normal (NORMAL) 06/28/23 14:25 Ur Leukocyte Esterase Negative (NEGATIVE) 06/28/23 14:25 Urine RBC 0-2 /HPF (0-3) 06/28/23 14:25 Urine WBC None seen /HPF (0-5) 06/28/23 14:25 Ur Squamous Epith Cells Rare /HPF (NEGATIVE) 06/28/23 14:25 Urine Bacteria Negative /HPF (NEGATIVE) 06/28/23 14:25 Hyaline Casts Rare /LPF (NEGATIVE) 06/28/23 14:25 Urine Mucus Few /HPF (NEGATIVE) 06/28/23 14:25 Ur Culture Indicated? No/not indicated 06/28/23 14:25 Urine Opiates Screen Negative (NEG=<300) 06/28/23 14:25 Urine Methadone Screen Negative (NEG=<300) 06/28/23 14:25 Ur Barbiturates Screen Negative (NEG=<200) 06/28/23 14:25 Ur Phencyclidine Scrn Negative (NEG=<25) 06/28/23 14:25 Ur Amphetamines Screen Negative (NEG=<1000) 06/28/23 14:25 U Benzodiazepines Scrn Negative (NEG=<200) 06/28/23 14:25 Urine Cocaine Screen Negative (NEG=<300) 06/28/23 14:25 U Marijuana (THC) Screen Positive (NEG=<50) A 06/28/23 14:25 Acetone, Semi-Quant Negative (NEGATIVE) 06/28/23 13:57 - Plan (1) Abdominal pain Status: Acute (2) Nausea and vomiting Status: Acute (3) Wound of left lower extremity Status: Acute (4) Hypertensive urgency Status: Acute (5) HTN (hypertension) Status: Chronic Qualifiers: Hypertension type: primary hypertension Qualified Code(s): I10 - Essential (primary) hypertension (6) DM (diabetes mellitus) Status: Chronic Qualifiers: Diabetes mellitus type: type 2 Diabetes mellitus intermission coordinator insulin use: with intermission coordinator use Diabetes mellitus complication status: with hyperglycemia Qualified Code(s): E11.65 - Type 2 diabetes mellitus with hyperglycemia; Z79.4 - jail (current) use of insulin (7) CAD (coronary artery disease) Status: Chronic Qualifiers: Coronary Disease-Associated Artery/Lesion type: [place] artery [place] vs. transplanted heart: [place] heart Associated angina: unspecified whether angina present Qualified Code(s): I25.10 - Atherosclerotic heart disease of [place] coronary artery without angina pectoris
[2023-07-01] MEDS: LEVAQUIN TAB 750 MG PO SCH (09:37)
[2023-07-01] MEDS: ASPIRIN 81 MG CHEWTAB PO SCH (09:38)
[2023-07-01] MEDS: NORVASC TAB 10 MG PO SCH (09:39)
[2023-07-01] MEDS: MAG-OX TAB PO SCH ×2 (09:40→20:32)
[2023-07-01] MEDS: ZESTRIL TAB 20 MG PO SCH (09:41)
[2023-07-01] MEDS: NS + KCL 20 MEQ/L 1,000 ML IV SCH (09:54)
[2023-07-01] MEDS: LEVEMIR SC SCH (11:27)
[2023-07-01] MEDS ORDERED: ASPIRIN EC 81 MG PO ONE (13:40)
[2023-07-01] MEDS: NovoLIN R (or HumuLIN R) SUBCUT PRN ×2 (17:30→20:34)
[2023-07-01] MEDS: SNACK - Diabetic Appropriate PO SCH ×3 (20:31)
[2023-07-01] MEDS: K-DUR TAB 20 MEQ PO SCH (20:32)
[2023-07-01] MEDS: RESTORIL CAP 15 MG PO PRN (20:33)
[2023-07-02] MEDS: NEURONTIN CAP 300 MG PO SCH (05:23)
[2023-07-02] MEDS: FLEXERIL TAB 10 MG PO SCH (05:23)
[2023-07-02] MEDS: NovoLIN R (or HumuLIN R) SUBCUT PRN (05:56)
[2023-07-02 06:00] VITALS: RESP 18
[2023-07-02 06:00] LABS: BASOPHILS # (AUTO) 0.1 X10^3/uL (0.0-0.1); BASOPHILS % (AUTO) 0.6 % (0.2-1.0); EOSINOPHILS # (AUTO) 0.1 x10^3/uL (0.0-0.2); HEMATOCRIT 41.1 % (42.0-54.0); HEMOGLOBIN 13.9 g/dL (13.5-18.0); LYMPHOCYTES # (AUTO) 2.4 X10^3/uL (1.3-2.9); LYMPHOCYTES % (AUTO) 26.9 % (21.0-51.0); MEAN CORPUSCULAR HEMOGLOBIN 27.9 pg (27.0-34.0); MEAN CORPUSCULAR HGB CONC 33.9 g/dL (33.0-35.0); MEAN CORPUSCULAR VOLUME 82.3 fL (80.0-100.0); MEAN PLATELET VOLUME 7.6 fL (7.4-11.0); MONOCYTES # (AUTO) 0.8 x10^3/uL (0.3-0.8); NEUTROPHILS # (AUTO) 5.6 x10^3/uL (2.2-4.8); NEUTROPHILS % (AUTO) 62.5 % (42.0-75.0); PLATELET COUNT 233 X10^3/uL (150.0-450.0); RED CELL DISTRIBUTION WIDTH 15.9 % (11.6-16.5)
[2023-07-02 06:15] LABS: ALANINE AMINOTRANSFERASE 13 Units/L (12-78); ALBUMIN 2.9 g/dL (3.4-5.0); ALKALINE PHOSPHATASE 60 Units/L (46-116); ASPARTATE AMINO TRANSFERASE 11 Units/L (15-37); BLOOD UREA NITROGEN 12 mg/dL (7-18); CALCIUM 8.1 mg/dL (8.5-10.1); CARBON DIOXIDE 27.6 mmol/L (21-32); CHLORIDE 101 mmol/L (98-107); COR NA(FOR HYPERGLY) 139 mmol/L (136-145); CREATININE 1.09 mg/dL (0.70-1.30); GLUCOSE 186 mg/dL (65-99); POTASSIUM 3.9 mmol/L (3.5-5.1); SODIUM 137 mmol/L (136-145); TOTAL PROTEIN 6.9 g/dL (6.4-8.2); eGFR NON BLACK RACES > 60 (>60)
--- NOTE | 2023-07-02 07:33 | DR.H&P ---
H&P History & Physical for Day of: H&P Date: 06/29/23 Chief Complaint Chief Complaint: Elevated blood pressure Nausea, vomiting Chronic diabetic ulcer Allergies Allergies Allergy/AdvReac Type Severity Reaction Status Date / Time dicyclomine Allergy RASH Verified 06/28/23 13:12 doxycycline Allergy Verified 06/28/23 13:12 metformin Allergy Verified 06/28/23 13:12 Penicillins Allergy Verified 06/28/23 13:12 Latex, Natural Rubber AdvReac Verified 06/29/23 00:30 History of Present Illness History of Present Illness: Pt is a 47 year old male past medical history of Hypertension, DMT2, CAD, Chronic diabetic ulcer, DDD, presenting with significantly elevated blood pressure. He reports recently moving from [place] and has run out of his medications that he was taking. He has not established with a pcp at this time. In the ED, he was noted to have hypertensive urgency and was started on IV medications to bring down blood pressure. Labs/imaging: W bc 11.2, Hgb 13.5, Plt 259, Na 138, K 3.1, Creatinine 0.97, Glucose 181, UA negative, UDS +thc, Magnesium 1.6, Troponin negative, CT abdomen and pelvis revealed: Suspect hepatic steatosis. 4 mm left adrenal myelolipoma. Moderate right and small left fat containing inguinal hernias. Small fat containing umbilical hernia. Small bowel feces sign of the terminal ileum is associated with delayed bowel transit. Negative for bowel obstruction. Pt admitted for hypertensive urgency, dehydration, hyperglycemic, chronic diabetic foot ulcer. Will start on IVF NS@KVO, patient states he is able to tolerate diet so will start on diabetic diet. Restart home insulin and include sliding scale insulin. Will start on IV Levaquin and consult General Surgery-Dr Gotti for evaluation of ulcer. Replete electrolytes per protocol. Restart home medications including anti-hypertensive and continue IV hydralazine and IV labetolol prn. Continue to closely monitor and follow up labs. Past Medical History Past Medical History: Coronary Artery Disease, Diabetes, Hypertension and [place] Past Surgical History Surgical History: Angioplasty/Stents Family History Family Medical History: Diabetes Mellitus, Heart Failure, Sudden Cardiac and Hypertension Social History Does patient currently use any type of tobacco product: No Have you used tobacco products in the last 12 months: No Type of Tobacco Use: mauro Does any household member use tobacco: No Alcohol Use: None Drug Use: Marijuana Medications Home Medications: Home Medications Medication Instructions Recorded Confirmed Type cyclobenzaprine 10 mg tablet 10 mg PO TID 06/28/23 06/28/23 History gabapentin 300 mg capsule 300 mg PO TID 06/28/23 06/28/23 History insulin detemir U-100 100 unit/mL 20 unit subcut DAILY 06/28/23 06/28/23 History subcutaneous solution (Levemir U-100 Insulin) insulin lispro 100 unit/mL 14 unit subcut BID 06/28/23 06/28/23 History subcutaneous solution (Humalog U-100 Insulin) lisinopril 5 mg tablet 5 mg PO DAILY 06/28/23 06/28/23 History meloxicam 7.5 mg tablet 7.5 mg PO QDAY 06/28/23 06/28/23 History oxycodone 10 mg tablet 10 mg PO Q8H PRN 06/28/23 06/28/23 History Labs 07/02/23 05:02 07/02/23 05:02 Labs: Laboratory WBC 11.2 X10^3/uL (3.6-10.0) H 06/29/23 04:25 RBC 4.86 X10^6/uL (4.7-6.0) 06/29/23 04:25 Hgb 13.5 g/dL (13.5-18.0) 06/29/23 04:25 Hct 39.5 % (42.0-54.0) L 06/29/23 04:25 MCV 81.2 fL (80.0-100.0) 06/29/23 04:25 MCH 27.8 pg (27.0-34.0) 06/29/23 04:25 MCHC 34.2 g/dL (33.0-35.0) 06/29/23 04:25 RDW 15.9 % (11.6-16.5) 06/29/23 04:25 Plt Count 259 X10^3/uL (150.0-450.0) 06/29/23 04:25 MPV 7.9 fL (7.4-11.0) 06/29/23 04:25 Neut % (Auto) 70.7 % (42.0-75.0) 06/29/23 04:25 Lymph % (Auto) 20.1 % (21.0-51.0) L 06/29/23 04:25 [place] % (Auto) 7.7 % (0.0-13.0) 06/29/23 04:25 Eos % (Auto) 0.6 % (0.9-2.9) L 06/29/23 04:25 Baso % (Auto) 0.9 % (0.2-1.0) 06/29/23 04:25 Neut # (Auto) 7.9 x10^3/uL (2.2-4.8) H 06/29/23 04:25 Lymph # (Auto) 2.3 X10^3/uL (1.3-2.9) 06/29/23 04:25 [place] # (Auto) 0.9 x10^3/uL (0.3-0.8) H 06/29/23 04:25 Eos # (Auto) 0.1 x10^3/uL (0.0-0.2) 06/29/23 04:25 Baso # (Auto) 0.1 X10^3/uL (0.0-0.1) 06/29/23 04:25 Absolute Nucleated RBC 0.1 /100WBC 06/29/23 04:25 Sodium 138 mmol/L (136-145) 06/29/23 04:25 Corrected Sodium 140 mmol/L (136-145) 06/29/23 04:25 Potassium 3.1 mmol/L (3.5-5.1) L 06/29/23 04:25 Chloride 101 mmol/L (98-107) 06/29/23 04:25 Carbon Dioxide 24.6 mmol/L (21-32) 06/29/23 04:25 BUN 10 mg/dL (7-18) 06/29/23 04:25 Creatinine 0.97 mg/dL (0.70-1.30) 06/29/23 04:25 Est GFR (MDRD) Af Amer > 60 (>60) 06/29/23 04:25 Est GFR (MDRD) Non-Af > 60 (>60) 06/29/23 04:25 Glucose 181 mg/dL (65-99) H 06/29/23 04:25 POC Glucose (mg/dL) 180 mg/dL (65-99) H 06/29/23 05:10 Calcium 8.1 mg/dL (8.5-10.1) L 06/29/23 04:25 Corrected Calcium 8.9 mg/dL (8.5-10.1) 06/29/23 04:25 Magnesium 1.6 mg/dL (2.0-2.9) L 06/29/23 04:25 Total Bilirubin 0.50 mg/dL (0.2-1.0) 06/29/23 04:25 AST 11 Units/L (15-37) L 06/29/23 04:25 ALT 12 Units/L (12-78) 06/29/23 04:25 Alkaline Phosphatase 63 Units/L (46-116) 06/29/23 04:25 Troponin I High Sens 22.3 ng/L (4.0-60.0) 06/28/23 13:57 Total Protein 7.1 g/dL (6.4-8.2) 06/29/23 04:25 Albumin 3.0 g/dL (3.4-5.0) L 06/29/23 04:25 Globulin 4.1 g/dL (2.5-4.5) 06/29/23 04:25 Albumin/Globulin Ratio 0.7 Ratio (1.1-2.1) L 06/29/23 04:25 Lipase 55 Units/L (73-393) L 06/28/23 13:57 Specimen Type Clean catch urine 06/28/23 14:25 Urine Color Yellow (YELLOW) 06/28/23 14:25 Urine Appearance Slightly hazy (CLEAR) 06/28/23 14:25 Urine pH 6.0 (5.0 - 8.0) 06/28/23 14:25 Ur Specific [place] 1.020 (1.000-1.030) 06/28/23 14:25 Urine Protein 2+ (NEGATIVE) 06/28/23 14:25 Urine Glucose (UA) 4+ (NEGATIVE) 06/28/23 14:25 Urine Ketones 1+ (NEGATIVE) 06/28/23 14:25 Urine Blood 1+ (NEGATIVE) 06/28/23 14:25 Urine Nitrite Negative (NEGATIVE) 06/28/23 14:25 Urine Bilirubin Negative (NEGATIVE) 06/28/23 14:25 Urine Urobilinogen Normal (NORMAL) 06/28/23 14:25 Ur Leukocyte Esterase Negative (NEGATIVE) 06/28/23 14:25 Urine RBC 0-2 /HPF (0-3) 06/28/23 14:25 Urine WBC None seen /HPF (0-5) 06/28/23 14:25 Ur Squamous Epith Cells Rare /HPF (NEGATIVE) 06/28/23 14:25 Urine Bacteria Negative /HPF (NEGATIVE) 06/28/23 14:25 Hyaline Casts Rare /LPF (NEGATIVE) 06/28/23 14:25 Urine Mucus Few /HPF (NEGATIVE) 06/28/23 14:25 Ur Culture Indicated? No/not indicated 06/28/23 14:25 Urine Opiates Screen Negative (NEG=<300) 06/28/23 14:25 Urine Methadone Screen Negative (NEG=<300) 06/28/23 14:25 Ur Barbiturates Screen Negative (NEG=<200) 06/28/23 14:25 Ur Phencyclidine Scrn Negative (NEG=<25) 06/28/23 14:25 Ur Amphetamines Screen Negative (NEG=<1000) 06/28/23 14:25 U Benzodiazepines Scrn Negative (NEG=<200) 06/28/23 14:25 Urine Cocaine Screen Negative (NEG=<300) 06/28/23 14:25 U Marijuana (THC) Screen Positive (NEG=<50) A 06/28/23 14:25 Acetone, Semi-Quant Negative (NEGATIVE) 06/28/23 13:57 Review of Systems Constitutional: No Symptoms Reported Eyes: No Symptoms Reported ENT: No Symptoms Reported Respiratory: No Symptoms Reported Cardiovascular: No Symptoms Reported Gastrointestinal: Nausea and Vomiting Genitourinary: No Symptoms Reported Musculoskeletal: No Symptoms Reported Skin: Wound Neurological: No Symptoms Reported Physical Exam Vital Signs: Vital Signs Temperature 98.4 F Temperature 98.1 F Pulse Rate [Left Radial] 93 Pulse Rate [Left Radial] 89 Respiratory Rate 18 Respiratory Rate 20 Respiratory Rate 19 Respiratory Rate 20 Respiratory Rate 18 Blood Pressure [Left Arm] 129/77 Blood Pressure [Left Arm] 134/75 Blood Pressure [Left Arm] 135/80 O2 Sat by Pulse Oximetry 95 O2 Sat by Pulse Oximetry 96 Oriented: Normal Eyes: Normal Ear: Normal Nose: Normal Throat: Normal Respiratory: Clear Throughout Cardiovascular: Normal : Normal Auscultation: Bowel Sounds: Normal Palpation: Normal Tenderness: Normal Skin: Wound (diabetic ulcer) Musculoskeletal: Normal Psychiatric: Normal Mood Description: Calm and Appropriate Affect: Normal Speech Pattern: Clear and Appropriate Assessment/Plan (1) Hypertensive urgency: Status: Acute Plan: Restart home medications. IV medications prn. Monitor blood pressure (2) Chronic diabetic ulcer of foot determined by examination: Status: Acute (3) DM (diabetes mellitus): Qualifiers: Diabetes mellitus type: type 2 Diabetes mellitus laborer golf course insulin use: with laborer golf course use Diabetes mellitus complication status: with hyperglycemia Qualified Code(s): E11.65 - Type 2 diabetes mellitus with hyperglycemia; Z79.4 - activities director (current) use of insulin Status: Chronic Plan: IV Levaquin, consult general surgery. (4) CAD (coronary artery disease): Qualifiers: Coronary Disease-Associated Artery/Lesion type: [place] artery [place] vs. transplanted heart: [place] heart Associated angina: unspecified whether angina present Qualified Code(s): I25.10 - Atherosclerotic heart disease of [place] coronary artery without angina pectoris Status: Chronic (5) Multilevel degenerative disc disease: Status: Acute (6) HTN (hypertension): Qualifiers: Hypertension type: primary hypertension Qualified Code(s): I10 - Essential (primary) hypertension Status: Chronic (7) Dehydration: Status: Acute Plan: IVF (8) Hypomagnesemia: Status: Acute (9) Hypokalemia: Status: Acute Review H&P Reviewed: Yes Patient was examined?: Yes
[2023-07-02 08:04] VITALS: BP 132/72; PULSE 70; TEMP 98; O2SAT 97
[2023-07-02] MEDS ORDERED: ZESTRIL TAB 20 MG ONE (08:33)
[2023-07-02] MEDS: NORVASC TAB 10 MG PO SCH (09:38)
[2023-07-02] MEDS: MAG-OX TAB PO SCH (09:38)
[2023-07-02] MEDS: ASPIRIN 81 MG CHEWTAB PO SCH (09:38)
[2023-07-02] MEDS: ZESTRIL TAB 20 MG PO SCH (09:39)
[2023-07-02] MEDS: LEVAQUIN TAB 750 MG PO SCH (09:39)
[2023-07-02] MEDS: ROXICODONE TAB 5 MG PO PRN (09:39)
[2023-07-02] MEDS: LEVEMIR SC SCH (09:50)
[2023-07-02] MEDS: NS + KCL 20 MEQ/L 1,000 ML IV SCH (10:29)
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
== END 2023-07-02 11:20 | disposition home or self-care (01) | DRG 305 ==
LOC: ER 12:58 → MED/SURG 18:24
PROVIDERS: ADMIT Family Medicine; ATTEND Family Medicine
DX: D17.79 Benign lipomatous neoplasm of other sites; I16.0 Hypertensive urgency; E86.0 Dehydration; I25.10 Atherosclerotic heart disease of native coronary artery without angina pectoris; Z79.4 Long term (current) use of insulin; L97.529 Non-pressure chronic ulcer of other part of left foot with unspecified severity; K40.20 Bilateral inguinal hernia, without obstruction or gangrene, not specified as recurrent; E11.621 Type 2 diabetes mellitus with foot ulcer; K42.9 Umbilical hernia without obstruction or gangrene; I10 Essential (primary) hypertension; E87.6 Hypokalemia; E83.42 Hypomagnesemia; E11.65 Type 2 diabetes mellitus with hyperglycemia; R10.84 Generalized abdominal pain; F12.90 Cannabis use, unspecified, uncomplicated; R11.2 Nausea with vomiting, unspecified